=== PATIENT | male | born 1940 | race Caucasian/White ===

== ENCOUNTER 2019-12-19 16:57 | Emergency (ER) | payer MEDICARE, OTHER ==
[2019-12-19] MEDS ORDERED: cloNIDine 0.1 MG Tab PO ONE (17:30)
--- NOTE | 2019-12-19 17:30 | EDM.PDOC ---
ED HPI GENERAL MEDICAL PROBLEM - General Chief Complaint: Cardiovascular Problem Stated Complaint: [facility] Time Seen by Provider: 12/19/19 17:07 Source of Information: Reports: Patient History Limitations: Reports: No Limitations - History of Present Illness INITIAL COMMENTS - FREE TEXT/NARRATIVE: Mr. Mason is a very pleasant 79-year-old gentleman with a past medical history significant for hypertension, treated with losartan, CHF treated with Lasix, and and chronic atrial fibrillation, on Eliquis, who is now brought to the ED by EMS due to his blood pressure being in the 180s/100s today. The patient states that he does not feel unusual in any way, including no headache, chest pain, nausea, visual change, or tingling/numbness. He reports that he is compliant with all of his medications. Here in the ED, the patient's initial BP is found to be elevated at 183/96. He is otherwise hemodynamically stable, afebrile, saturating 97% on room air. Other than today's elevated BP, the patient denies recent fever, chills, sore throat, ear pain, nasal or sinus congestion, cough, dyspnea, chest pain, palpitations, nausea, vomiting, constipation, diarrhea, abdominal pain, urinary symptoms, recent weight gain or weight loss, recent bloody bowel movements or black bowel movements, recent joint aches, headaches, or rashes. The patient's PCP is Dr. Tito Bernardo. His Urologist is Dr. Darren Mckeon. - Related Data Allergies Allergy/AdvReac Type Severity Reaction Status Date / Time No Known Allergies Allergy Verified 06/14/18 11:19 Home Meds: Home Meds Simvastatin [Zocor] 20 mg PO BEDTIME 01/12/16 [History] Tamsulosin HCl [Flomax] 0.4 mg PO DAILY #30 cap.er.24h 01/14/16 [Rx] Acetaminophen [Tylenol] 2 tab PO Q4H PRN 04/08/18 [History] Aspirin 81 mg PO DAILY 04/08/18 [History] Mag Hydrox/Aluminum Hyd/Simeth [Ev-Lanta] 200 mg PO Q4H PRN 04/08/18 [History] Melatonin 1 mg PO BEDTIME PRN 04/08/18 [History] Sertraline HCl [Zoloft] 100 mg PO DAILY 04/08/18 [History] Saccharomyces Boulardii [Florastor] 250 mg PO DAILY #14 cap 04/21/18 [Rx] Apixaban [Eliquis] 5 mg PO BID 06/05/18 [History] Furosemide [Lasix] 20 mg PO DAILY 06/05/18 [History] Losartan [Cozaar] 50 mg PO DAILY 06/05/18 [History] haloperidoL [Haldol] 2.5 mg PO DAILY 12/19/19 [History] Past Medical History HEENT History: Reports: Hard of Hearing, Impaired Vision (wears glasses) Cardiovascular History: Reports: Afib (chronic), Heart Failure, High Cholesterol , Hypertension Genitourinary History: Reports: BPH Psychiatric History: Reports: Depression, Other (See Below) (Insomnia) - Past Surgical History GI Surgical History: Reports: Cholecystectomy (1999 or 2004), Colonoscopy (x 2) , EGD (x 2), Other (See Below) (Benign gastric tumor excision) Social & Family History - Family History Family Medical History: Noncontributory - Tobacco Use Smoking Status *Q: Former Smoker Years of Tobacco use: 34 Packs/Tins Daily: 0.5 Month/Year Tobacco Last Used: Quit 1990 - Caffeine Use Caffeine Use: Reports: Coffee, Tea - Alcohol Use Alcohol Use History: Yes Alcohol Use Frequency: Rarely - Recreational Drug Use Recreational Drug Use: No - Living Situation & Occupation Living situation: Reports: Single, Assisted Living ([facility] [place]) Occupation: Retired ED ROS GENERAL - Review of Systems Review Of Systems: Comprehensive ROS is negative, except as noted in HPI. ED EXAM, GENERAL - Physical Exam Exam: See Below Exam Limited By: No Limitations General Appearance: Alert, WD/WN, No Apparent Distress Eye Exam: Bilateral Eye: EOMI, Normal Inspection Ears: Normal External Exam, Hearing Grossly Normal Nose: Normal Inspection Throat/Mouth: Normal Inspection, Normal Lips, Normal Voice, No Airway Compromise Head: Atraumatic, Normocephalic Neck: Normal Inspection, Full Range of Motion Respiratory/Chest: No Respiratory Distress, Lungs Clear, Normal Breath Sounds, No Accessory Muscle Use Cardiovascular: Normal Peripheral Pulses, No Edema, No Gallop, No JVD, No Murmur , No Rub, Irregularly Irregular (regular rate) Peripheral Pulses: 3+: Radial (L), Radial (R) GI/Abdominal: Normal Bowel Sounds, Soft, Non-Tender, No Organomegaly, No Distention, No Abnormal Bruit, No Mass (Male) Exam: Deferred Rectal (Males) Exam: Deferred Back Exam: Normal Inspection, Full Range of Motion, NT Extremities: Normal Inspection, Normal Range of Motion, No Pedal Edema, Normal Capillary Refill Neurological: Alert, Oriented, Normal Cognition, No Motor/Sensory Deficits Psychiatric: Normal Affect Skin Exam: Warm, Dry, Intact, Normal Color, No Rash EKG INTERPRETATION EKG Date: 12/19/19 Time: 17:28 Rhythm: A-Fib Rate (Beats/Min): 66 [place]: Normal P-Wave: Absent QRS: Normal ST-T: Normal QT: Normal Comparison: No Change (06/05/2018) Course - Vital Signs Last Recorded V/S: Last Vital Signs Temp 36.8 C 12/19/19 16:59 Pulse 62 12/19/19 16:59 Resp 16 12/19/19 16:59 BP 182/110 H 12/19/19 17:43 Pulse Ox 97 12/19/19 16:59 - Orders/Labs/Meds Orders: Active Orders 24 hr Category Date Time Status EKG Documentation Completion [RC] STAT Care 12/19/19 17:24 Active Labs: Laboratory Tests 12/19/19 12/19/19 Range/Units 17:45 17:45 WBC 10.33 H (4.23-9.07) K/mm3 RBC 5.48 (4.63-6.08) M/mm3 Hgb 16.6 (13.7-17.5) gm/dl Hct 48.7 (40.1-51.0) % MCV 88.9 (79.0-92.2) fl MCH 30.3 (25.7-32.2) pg MCHC 34.1 (32.2-35.5) g/dl RDW Std Deviation 46.8 H (35.1-43.9) fL Plt Count 195 (163-337) K/mm3 MPV 10.7 (9.4-12.3) fl Neut % (Auto) 72.9 H (34.0-67.9) % Lymph % (Auto) 15.1 L (21.8-53.1) % [place] % (Auto) 10.6 (5.3-12.2) % Eos % (Auto) 0.7 L (0.8-7.0) Baso % (Auto) 0.4 (0.1-1.2) % Neut # (Auto) 7.53 H (1.78-5.38) K/mm3 Lymph # (Auto) 1.56 (1.32-3.57) K/mm3 Burke # (Auto) 1.10 H (0.30-0.82) K/mm3 Eos # (Auto) 0.07 (0.04-0.54) K/mm3 Baso # (Auto) 0.04 (0.01-0.08) K/mm3 Manual Slide Review Normal smear Sodium 135 L (136-145) mEq/L Potassium 3.9 (3.5-5.1) mEq/L Chloride 98 (98-107) mEq/L Carbon Dioxide 27 (21-32) mEq/L Anion Gap 13.9 (5-15) BUN 15 (7-18) mg/dL Creatinine 0.8 (0.7-1.3) mg/dL Est Cr Clr Drug Dosing 79.74 mL/min Estimated GFR (MDRD) > 60 (>60) mL/min BUN/Creatinine Ratio 18.8 H (14-18) Glucose 106 (83-115) mg/dL Calcium 9.2 (8.5-10.1) mg/dL Magnesium 2.1 (1.8-2.4) mg/dl Total Bilirubin 1.2 H (0.2-1.0) mg/dL AST 30 (15-37) U/L ALT 31 (16-63) U/L Alkaline Phosphatase 96 (46-116) U/L Troponin I < 0.017 (0.00-0.056) ng/mL Total Protein 8.2 (6.4-8.2) g/dl Albumin 4.0 (3.4-5.0) g/dl Globulin 4.2 gm/dL Albumin/Globulin Ratio 1.0 (1-2) Meds: Medications Discontinued Medications Generic Name Dose Route Start Last Admin Trade Name Freq PRN Reason Stop Dose Admin Clonidine HCl 0.1 mg 12/19/19 17:30 12/19/19 17:43 Catapres PO 12/19/19 17:31 0.1 mg ONETIME ONE Administration - Re-Assessments/Exams Free Text/Narrative Re-Assessment/Exam: 12/19/19 17:25 As above, the patient was brought to the ED after his BP was found to be in the 180s/100s all day. The patient has no unusual symptoms, such as a headache, blurry vision, nausea, chest pain, abdominal pain, or dysuria. He states that he has been compliant with his medications, and he denies recent illness. It is unclear why his blood pressure is elevated, however, it is well below the systolic cutoff of 240mmHg or diastolic cutoff of 120 mmHg that would constitute a hypertensive emergency. His current BP of 183/96 is consistent with severe hypertension, but as he is asymptomatic, it does not meet the diagnostic criteria of hypertension urgency, either. Current guidelines are ambiguous as to whether or not immediate treatment is indicated. I have ordered a work-up that includes some blood work and an ECG to see if there are any abnormalities that need to be addressed. In the meantime, since the patient is on Eliquis, I am going to lean towards treatment with a small dose of clonidine. 12/19/19 18:59 Following clonidine 0.1 mg, the patient's BP is now 156/108, with a HR of 66. The patient's CBC is remarkable for WBC count slightly did at 10.33, with the remainder of his CBC being unremarkable. His CMP is remarkable for a sodium at the lower end of normal of 135, and a TBil slightly elevated at 1.2, with the remainder of his CMP being unremarkable. His magnesium level is within normal limits at 2.1. His troponin is undetectably low. Review of prior labs finds that the patient's TBil is chronically slightly elevated, consistent with Gilbert syndrome. 12/19/19 19:05 Test results discussed with the patient and his brother (now present). As above , today's work-up is grossly unremarkable. I recommended that if his BP continues to remain elevated, that he follow-up with his PCP for possible modification of his BP medication regimen. I believe that he can safely be discharged home. Departure - Departure Time of Disposition: 19:06 Disposition: Home, Self-Care 01 Condition: Good Clinical Impression: Elevated blood pressure reading, Gilbert syndrome Referrals: Tito Bernardo MD [Primary Care Provider] - Darren Mckeon MD [Physician] - Forms: ED Department Discharge Additional Instructions: You were seen in the emergency room after your blood pressure was elevated in the 180s/100s all day. Work-up in the ER included blood work and an ECG, all of which were unremarkable. There is no sign of an infection. You are not anemic. You have not suffered a heart attack. Your blood pressure was treated with a single dose of clonidine 0.1 mg, and your most recent BP has gone down to 156/108, with a heart rate of 66 bpm. We recommend that you resume your usual medications, as prescribed, however, if your blood pressure remains elevated, we recommend that you follow-up with your PCP, Dr. Tito Bernardo, for possible blood pressure medication changes. If any other problems, please do not hesitate to return to the ER. Sepsis Event Note (ED) - Evaluation Sepsis Screening Result: No Definite Risk - Focused Exam Vital Signs: Vital Signs Temp Pulse Resp BP BP Pulse Ox 12/19/19 17:43 182/110 H 12/19/19 16:59 36.8 C 62 16 183/96 H 97 - My Orders Last 24 Hours: My Active Orders 12/19/19 17:24 EKG Documentation Completion [RC] STAT - Assessment/Plan Last 24 Hours: My Active Orders 12/19/19 17:24 EKG Documentation Completion [RC] STAT
[2019-12-19 19:45] VITALS: BP 156/108; PULSE 66
== END 2019-12-19 19:20 | disposition home or self-care (01) ==
LOC: JD.ED 16:57
DX: I11.0 Hypertensive heart disease with heart failure (principal); I50.9 Heart failure, unspecified; E80.4 Gilbert syndrome; N40.0 Benign prostatic hyperplasia without lower urinary tract symptoms; F32.9 Major depressive disorder, single episode, unspecified; E78.00 Pure hypercholesterolemia, unspecified; I48.91 Unspecified atrial fibrillation; Z87.891 Personal history of nicotine dependence; Z79.82 Long term (current) use of aspirin; Z79.899 Other long term (current) drug therapy
CPT/HCPCS: 36415; 80053; 83735; 84484; 85025; 93005; 99284; A9270; 93010

== ENCOUNTER 2021-04-24 15:05 | Emergency (ER) | payer MEDICARE, OTHER ==
--- NOTE | 2021-04-24 15:38 | EDM.PDOC ---
ED HPI GENERAL MEDICAL PROBLEM - General Chief Complaint: Neuro Symptoms/Deficits Stated Complaint: [facility] Time Seen by Provider: 04/24/21 15:16 Source of Information: Reports: Patient, RN Notes Reviewed History Limitations: Reports: No Limitations - History of Present Illness INITIAL COMMENTS - FREE TEXT/NARRATIVE: Patient is an 80-year-old male presenting to the emergency department from [facility] for evaluation of redness to his left eye. Caregivers also thought that he was a little weak on the right side, however patient denies this. EMS report that when they arrived to the [facility], he walked down the [address] and got into the ambulance of his own volition. Patient denies any headache. He denies any pain or blurry vision of the left eye. Reports that it feels "a little dry ". Patient ambulates with front wheel walker at baseline. Denies any recent falls or injuries. States that he is "feeling good ". - Related Data Allergies Allergy/AdvReac Type Severity Reaction Status Date / Time No Known Allergies Allergy Verified 04/24/21 15:10 Home Meds: Home Meds Simvastatin [Zocor] 20 mg PO BEDTIME 01/12/16 [History] Tamsulosin HCl [Flomax] 0.4 mg PO DAILY #30 cap.er.24h 01/14/16 [Rx] Acetaminophen [Tylenol] 2 tab PO Q4H PRN 04/08/18 [History] Aspirin 81 mg PO DAILY 04/08/18 [History] Mag Hydrox/Aluminum Hyd/Simeth [Ev-Lanta] 200 mg PO Q4H PRN 04/08/18 [History] Melatonin 1 mg PO BEDTIME PRN 04/08/18 [History] Sertraline HCl [Zoloft] 100 mg PO DAILY 04/08/18 [History] Saccharomyces Boulardii [Florastor] 250 mg PO DAILY #14 cap 04/21/18 [Rx] Apixaban [Eliquis] 5 mg PO BID 06/05/18 [History] Furosemide [Lasix] 20 mg PO DAILY 06/05/18 [History] Losartan [Cozaar] 50 mg PO DAILY 06/05/18 [History] haloperidoL [Haldol] 2.5 mg PO DAILY 12/19/19 [History] Past Medical History HEENT History: Reports: Hard of Hearing, Impaired Vision (wears glasses) Cardiovascular History: Reports: Afib (chronic), Heart Failure, High Cholesterol, Hypertension Respiratory History: Reports: Pneumonia, Recurrent Gastrointestinal History: Reports: Other (See Below) Other Gastrointestinal History: abdominal tumor removed Genitourinary History: Reports: BPH SORTER LAUNDRY ARTICLES History: Reports: None Musculoskeletal History: Reports: None, Fracture Neurological History: Reports: None Psychiatric History: Reports: Depression, Other (See Below) (Insomnia) Other Psychiatric History: insomnia Endocrine/Metabolic History: Reports: None Hematologic History: Reports: None Immunologic History: Reports: None Oncologic (Cancer) History: Reports: None Dermatologic History: Reports: None - Past Surgical History GI Surgical History: Reports: Cholecystectomy (1999 or 2005), Colonoscopy (x 2), EGD (x 2), Other (See Below) (Benign gastric tumor excision) Social & Family History - Family History Family Medical History: No Pertinent Family History - Caffeine Use Caffeine Use: Reports: Coffee, Tea - Living Situation & Occupation Living situation: Reports: Single, Assisted Living ([facility]) Occupation: Retired ED ROS GENERAL - Review of Systems Review Of Systems: See Below Constitutional: Reports: No Symptoms. Denies: Weakness, Fatigue HEENT: Reports: Other (Redness to left eye, dry eye) Respiratory: Reports: No Symptoms. Denies: Shortness of Breath Cardiovascular: Reports: No Symptoms. Denies: Chest Pain, Lightheadedness Endocrine: Reports: No Symptoms GI/Abdominal: Reports: No Symptoms : Reports: No Symptoms Musculoskeletal: Reports: No Symptoms Skin: Reports: No Symptoms Neurological: Reports: No Symptoms. Denies: Dizziness, Headache, Paresthesia, Trouble Speaking, Difficulty Walking, Weakness, Change in Speech, Gait Disturbance Psychiatric: Reports: No Symptoms Hematologic/Lymphatic: Reports: No Symptoms Immunologic: Reports: No Symptoms ED EXAM, GENERAL - Physical Exam Exam: See Below General Appearance: Alert, WD/WN, No Apparent Distress Eye Exam: Right Eye: Normal Inspection, Left Eye: Other (Subconjunctival hemorrhage to medial aspect of left eye with a small amount of redness on the lateral aspect of the eye as well.), Bilateral Eye: PERRL Respiratory/Chest: No Respiratory Distress, Lungs Clear, Normal Breath Sounds, No Accessory Muscle Use, Chest Non-Tender Cardiovascular: Normal Peripheral Pulses, Regular Rate, Rhythm, No Edema, No Gallop, No JVD, No Murmur, No Rub GI/Abdominal: Normal Bowel Sounds, Soft, Non-Tender, No Organomegaly, No Distention, No Abnormal Bruit, No Mass Extremities: Normal Inspection, Normal Range of Motion, Non-Tender, Normal Capillary Refill, No Pedal Edema Neurological: Alert, Oriented, CN II-XII Intact, Normal Cognition, Normal Gait, Normal Reflexes, No Motor/Sensory Deficits, Other (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.) Psychiatric: Normal Affect, Normal Mood Skin Exam: Warm, Dry, Intact, Normal Color, No Rash Course - Vital Signs Last Recorded V/S: Last Vital Signs Temp 97.4 F 04/24/21 16:10 Pulse 63 04/24/21 16:10 Resp 18 04/24/21 15:11 BP 122/82 04/24/21 16:10 Pulse Ox 95 04/24/21 16:10 - Orders/Labs/Meds Labs: Laboratory Tests 04/24/21 04/24/21 04/24/21 Range/Units 15:16 15:16 15:16 WBC 7.83 (4.23-9.07) K/mm3 RBC 5.33 (4.63-6.08) M/mm3 Hgb 16.0 (13.7-17.5) gm/dl Hct 47.5 (40.1-51.0) % MCV 89.1 (79.0-92.2) fl MCH 30.0 (25.7-32.2) pg MCHC 33.7 (32.2-35.5) g/dl RDW Std Deviation 54.0 H (35.1-43.9) fL Plt Count 191 (163-337) K/mm3 MPV 11.3 (9.4-12.3) fl Neut % (Auto) 74.1 H (34.0-67.9) % Lymph % (Auto) 18.5 L (21.8-53.1) % [place] % (Auto) 6.1 (5.3-12.2) % Eos % (Auto) 0.5 L (0.8-7.0) Baso % (Auto) 0.4 (0.1-1.2) % Neut # (Auto) 5.80 H (1.78-5.38) K/mm3 Lymph # (Auto) 1.45 (1.32-3.57) K/mm3 [place] # (Auto) 0.48 (0.30-0.82) K/mm3 Eos # (Auto) 0.04 (0.04-0.54) K/mm3 Baso # (Auto) 0.03 (0.01-0.08) K/mm3 PT 11.9 (9.7-12.0) SECONDS INR 1.08 APTT 29.4 (21.7-31.4) SECONDS Sodium 136 (136-145) mEq/L Potassium 4.7 (3.5-5.1) mEq/L Chloride 102 (98-107) mEq/L Carbon Dioxide 26 (21-32) mEq/L Anion Gap 10.7 (5-15) BUN 18 (7-18) mg/dL Creatinine 1.0 (0.7-1.3) mg/dL Est Cr Clr Drug Dosing 64.67 mL/min Estimated GFR (MDRD) > 60 (>60) mL/min BUN/Creatinine Ratio 18.0 (14-18) Glucose 98 (70-99) mg/dL Calcium 9.1 (8.5-10.1) mg/dL Total Bilirubin 1.2 H (0.2-1.0) mg/dL AST 39 H (15-37) U/L ALT 23 (16-63) U/L Alkaline Phosphatase 80 (46-116) U/L Total Protein 7.9 (6.4-8.2) g/dl Albumin 4.1 (3.4-5.0) g/dl Globulin 3.8 gm/dL Albumin/Globulin Ratio 1.1 (1-2) - Re-Assessments/Exams Free Text/Narrative Re-Assessment/Exam: Patient is an 80-year-old male presenting to the emergency department for evaluation of red left eye. Staff at [facility] also that he may be more weak on the right than the left. Patient denies any weakness. States "I feel good ". EMS reports that he walked to the ambulance without difficulty. On exam, patient does have a subconjunctival hemorrhage on the left eye. Denies any pain or vision changes. Pupils are equal and reactive bilaterally. Patient's neurologic exam is normal. He equal strength of the upper and lower limbs bilaterally. He is alert and oriented. No difficulty with speech. I will have nursing staff get him up and walk., In the meantime we will complete blood work including CBC, C MP, and coags. 04/24/21 16:44 Hematology significant for total bili slightly elevated 1.2 and AST 39. Otherwise unremarkable. Patient is able to get up and ambulate very well with a front wheel walker which he uses at baseline. He has no neurologic deficits and denies any headache, numbness or tingling of his extremities. States he feels well. We will discharge him home. Discharge instructions as documented. Departure - Departure Time of Disposition: 16:42 Disposition: Home, Self-Care 01 Condition: Good Clinical Impression: Subconjunctival hemorrhage of left eye - Discharge Information *PRESCRIPTION DRUG MONITORING PROGRAM REVIEWED*: No *COPY OF PRESCRIPTION DRUG MONITORING REPORT IN PATIENT MATI: No Instructions: Subconjunctival Hemorrhage Referrals: Joan Mays SENIOR ELECTRONICS DESIGN ENGINEER [Primary Care Provider] - Forms: ED Department Discharge Additional Instructions: You were seen in the emergency department today for evaluation of redness to your left eye. The redness in your left eye is due to a subconjunctival hemorrhage which is a broken blood vessel within the eye. This does not require any medical intervention. It will heal over the next few weeks. Recommend that you follow-up with your primary care provider on Thursday or Thursday for reevaluation. Should you experience any new or worsening symptoms, please do not hesitate to return to the emergency department for reevaluation. Sepsis Event Note (ED) - Evaluation Sepsis Screening Result: No Definite Risk - Focused Exam Vital Signs: Vital Signs Temp Pulse Resp BP Pulse Ox 04/24/21 16:10 97.4 F 63 122/82 95 04/24/21 15:11 98.5 F 57 L 18 146/90 H 97
[2021-04-24 16:11] VITALS: BP 122/82; PULSE 63
== END 2021-04-24 17:00 | disposition home or self-care (01) ==
LOC: SUPCPDRO 15:05 → JD.ED 15:05
DX: H11.32 Conjunctival hemorrhage, left eye (principal); I48.91 Unspecified atrial fibrillation; I11.0 Hypertensive heart disease with heart failure; I50.9 Heart failure, unspecified; E78.00 Pure hypercholesterolemia, unspecified; N40.0 Benign prostatic hyperplasia without lower urinary tract symptoms; Z79.82 Long term (current) use of aspirin; Z79.01 Long term (current) use of anticoagulants; Z79.899 Other long term (current) drug therapy
CPT/HCPCS: 36415; 80053; 85025; 85610; 85730; 99283

== ENCOUNTER 2021-12-22 00:58 | Emergency (ER) | payer MEDICARE, OTHER ==
[2021-12-22 01:12] VITALS: BP 126/85; PULSE 66
== END 2021-12-22 03:32 | disposition home or self-care (01) ==
LOC: JD.ED 00:58
DX: R04.0 Epistaxis (principal); I48.91 Unspecified atrial fibrillation; I11.0 Hypertensive heart disease with heart failure; I50.9 Heart failure, unspecified; E78.00 Pure hypercholesterolemia, unspecified; N40.0 Benign prostatic hyperplasia without lower urinary tract symptoms; Z79.899 Other long term (current) drug therapy; Z79.82 Long term (current) use of aspirin; Z79.01 Long term (current) use of anticoagulants
CPT/HCPCS: 30901; 99283; C9046